=== PATIENT | female | born 1935 | race Caucasian/White ===

== ENCOUNTER 2017-04-21 22:56 | Emergency (ER) | payer MEDICARE ==
[2017-04-21] MEDS ORDERED: Ondansetron HCl/PF 4 MG/2 ML Vial ONE (23:14)
[2017-04-21] MEDS ORDERED: Loperamide HCl 2 MG CAP ONE (23:24)
[2017-04-21 23:31] LABS: Hematocrit 44.2 % (36.0-47.0); Mean Platelet Volume 5.9 fL (7.4-10.4); Red Blood Cell (RBC) Count 5.21 mill/uL (4.20-5.40); White Blood Cell (WBC) Count 15.6 thou/uL (4.8-10.8)
[2017-04-21 23:46] LABS: ALT (SGPT) 21 U/L (8-55); AST (SGOT) 37 U/L (5-34); Alkaline Phosphatase 66 U/L (40-150); Anion Gap 18 mmol/L (10-20); BUN (Urea Nitrogen) 17 mg/dL (9.8-20.1); Bilirubin, Total 0.4 mg/dL (0.2-1.2); Calc. Creatinine Clearance 0 mL/min (70-130); Calcium 9.3 mg/dL (7.8-10.44); Carbon Dioxide 23 mmol/L (23-31); Chloride 105 mmol/L (98-107); Estimated GFR-MDRD 74; Globulin 3.1 g/dL (2.4-3.5); Lipase 42 U/L (8-78); Protein, Total 7.6 g/dL (6.0-8.3)
[2017-04-21 23:50] LABS: Band 7 % (5-11); Neutrophil 80 % (42-75)
[2017-04-22 00:15] LABS: Bilirubin Negative (Negative); Blood, Urine Negative (Negative); Glucose, Urine (Dipstick) Negative (Negative); Ketone, Urine Trace mg/dL (Negative); Nitrite Negative (Negative); Protein, Urine (Dipstick) Negative (Neg-Trace); Urobilinogen 0.2 mg/dL (0.2-1.0)
[2017-04-22 00:21] LABS: Bacteria/HPF Rare-Few HPF (None Seen); Hyaline Casts/LPF 0-3 HYALINE CAST LPF (0-3 Hyaline); RBC/HPF 0-3 HPF (0-3); Squamous Epithelial 0-3 HPF (0-3)
--- NOTE | 2017-05-15 12:05 | EKG ---
Test Reason : ND Blood Pressure : / mmHG Vent. Rate : 088 BPM Atrial Rate : 088 BPM P-R Int : 142 ms QRS Dur : 086 ms QT Int : 332 ms P-R-T Axes : 060 089 -12 degrees QTc Int : 401 ms Normal sinus rhythm Abnormal ECG Confirmed by LAN VERAS ([id number]), editor producer MATT KOENIG ([id number]) on 05/15/2017 12:04:42 PM Referred By: Confirmed By:LAN VERAS
== END 2017-04-22 00:43 | disposition home or self-care (01) ==
LOC: SCSER 22:56
DX: K52.9 Noninfective gastroenteritis and colitis, unspecified (principal); E03.9 Hypothyroidism, unspecified; K21.9 Gastro-esophageal reflux disease without esophagitis; Z79.899 Other long term (current) drug therapy
CPT/HCPCS: 80053; 81003; 81015; 82553; 83690; 84484; 85025; 87086; 93005; 96361; 96374; J2405

== ENCOUNTER 2017-06-25 11:41 | Outpatient (CLI) | payer MEDICARE | END 2017-06-25 11:42 | disposition home or self-care (01) | LOC: BICMAMMO 11:41 | PROVIDERS: ATTEND Internal Medicine | DX: Z12.31 Encounter for screening mammogram for malignant neoplasm of breast (principal) | CPT/HCPCS: 77063; 77067 ==

== ENCOUNTER 2017-08-09 16:34 | Emergency (ER) | payer MEDICARE ==
--- NOTE | 2017-08-09 17:28 | RAD ---
CHEST 2 VIEWS: Date: 08/09/17 HISTORY: Cough and congestion. COMPARISON: Chest radiograph dated 02/02/12. FINDINGS: There is some linear atelectasis in the right lower lobe. Remainder of the lungs are clear. No pneumo thorax. No effusion. No acute osseous abnormality. Mild ectasia of the aorta. IMPRESSION: Right lower lobe opacity, likely atelectasis. Follow-up could be obtained. POS: HOME
[2017-08-09] MEDS ORDERED: Lidocaine 1% w/Epinephrine 1:100K 30 ML VIAL ONE (17:43)
== END 2017-08-09 17:32 | disposition home or self-care (01) ==
LOC: SCSER 16:34
DX: J20.9 Acute bronchitis, unspecified (principal); E03.9 Hypothyroidism, unspecified; K21.9 Gastro-esophageal reflux disease without esophagitis; Z79.899 Other long term (current) drug therapy
CPT/HCPCS: 71046; J2001

== ENCOUNTER 2017-08-15 14:43 | Day surgery (SDC) | payer MEDICARE ==
[2017-08-15] MEDS ORDERED: Benzonatate 100 MG CAP ONE (15:52)
--- NOTE | 2017-08-15 17:15 | RAD ---
CHEST TWO VIEW 08/15/17 HISTORY: Cough and shortness of breath. COMPARISON: Radiograph 08/09/17. FINDINGS: Mild increased opacification in the right lower lobe may reflect pneumonia. No pneumothorax. Mild luz g hyperinflation. The cardiac silhouette and mediastinal contours are similar. IMPRESSION: Mild increase in right lower lobe air space opacity may reflect underlying early infection. Followup recommended. POS: [facility]
[2017-08-15 17:24] LABS: #Basophils 0.1 thou/uL (0.0-0.2); #Lymphocytes 2.1 thou/uL (1.20-3.40); #Monocytes 0.5 thou/uL (0.11-0.59); #Neutrophils 3.5 thou/uL (1.40-6.50); %Basophils 1.2 % (0.0-1.0); %Eosinophils 0.7 % (0.0-10.0); %Lymphocytes 33.9 % (21.0-51.0); %Monocytes 7.7 % (0.0-10.0); %Neutrophils 56.6 % (42.0-75.0); Mean Corpuscular HGB CONC 34.1 g/dL (32.0-36.0); Mean Corpuscular Hemoglobin 26.9 pg (27.0-31.0); Mean Corpuscular Volume 78.8 fl (81.0-99.0); Mean Platelet Volume 5.8 fL (7.4-10.4); Platelet Count 206 thou/uL (130-400); RBC Distribution Width 11.6 % (11.5-14.5); Red Blood Cell (RBC) Count 4.46 mill/uL (4.20-5.40); White Blood Cell (WBC) Count 6.2 thou/uL (4.8-10.8)
[2017-08-15 17:42] LABS: ALT (SGPT) 13 U/L (8-55); AST (SGOT) 18 U/L (5-34); Alkaline Phosphatase 58 U/L (40-150); Anion Gap 15 mmol/L (10-20); BUN (Urea Nitrogen) 9 mg/dL (9.8-20.1); Bilirubin, Total 0.6 mg/dL (0.2-1.2); Calc. Creatinine Clearance 0 mL/min (70-130); Calcium 9.2 mg/dL (7.8-10.44); Carbon Dioxide 23 mmol/L (23-31); Chloride 105 mmol/L (98-107); Estimated GFR-MDRD 90; Globulin 2.4 g/dL (2.4-3.5); Glucose 97 mg/dL (83-110); Potassium 3.8 mmol/L (3.5-5.1); Protein, Total 6.4 g/dL (6.0-8.3); Sodium 139 mmol/L (136-145)
[2017-08-15 17:44] LABS: CKMB 1.4 ng/mL (0-6.6); Troponin I Less than 0.010 ng/mL (< 0.028)
[2017-08-15] MEDS ORDERED: cefTRIAXone\\ROCEPHIN 2 GM VIAL ONE (19:01)
[2017-08-15] MEDS ORDERED: Sodium Chloride 0.9% 100 ML ONE (19:02)
[2017-08-15] MEDS ORDERED: Albuterol Sulfate 2.5 mg/0.5 ml Neb ONE ×2 (19:19→19:20)
[2017-08-15] MEDS ORDERED: Azithromycin 500 MG VIAL ONE (20:10)
== END 2017-08-16 09:54 | disposition home or self-care (01) ==
LOC: SCSER 14:43 → SCSER/OP 19:37
PROVIDERS: ATTEND Emergency Medicine
DX: J18.9 Pneumonia, unspecified organism (principal); M85.80 Other specified disorders of bone density and structure, unspecified site; E03.9 Hypothyroidism, unspecified; K21.9 Gastro-esophageal reflux disease without esophagitis; M19.90 Unspecified osteoarthritis, unspecified site; T78.1XXA Other adverse food reactions, not elsewhere classified, initial encounter; Z90.710 Acquired absence of both cervix and uterus; Z92.3 Personal history of irradiation; Z85.820 Personal history of malignant melanoma of skin
CPT/HCPCS: 36415; 71046; 80053; 82553; 83880; 84484; 85025; 87040; 93005; 94760; J0456; J0696; J7050; J7611

== ENCOUNTER 2020-07-16 21:51 | Inpatient (IN) | payer MEDICARE ==
[2020-07-16] MEDS ORDERED: Dextrose 5% in Water 1,000 ML IV PRN (23:55)
[2020-07-16] MEDS ORDERED: Dextrose 50% Abboject 50 ML SYRINGE SLOW IVP PRN (23:55)
[2020-07-16] MEDS ORDERED: hydrALAZINE 20 MG/ML VIAL SLOW IVP PRN (23:55)
[2020-07-16] MEDS ORDERED: HumaLOG 300 UNITS/3 ML VIAL SC PRN (23:55)
[2020-07-16] MEDS ORDERED: Promethazine HCl 25 MG/ML VIAL IM PRN (23:55)
[2020-07-16] MEDS ORDERED: Morphine 2 MG/ML VIAL SLOW IVP PRN (23:55)
[2020-07-17] MEDS ORDERED: traMADol HCl 50 MG TAB PO PRN (00:05)
[2020-07-17] MEDS: traMADol HCl 50 MG TAB PO SCH ×5 (00:36→23:20)
[2020-07-17] MEDS: Acetaminophen 500 MG TAB PO SCH ×5 (00:36→23:18)
[2020-07-17] MEDS: Lactated Ringer's 1,000 ML IV SCH ×2 (00:37→13:35)
[2020-07-17 00:59] VITALS: BMI 20.7
[2020-07-17 01:29] LABS: Bilirubin Negative (Negative); Blood, Urine Negative (Negative); Clarity Clear (Clear); Glucose, Urine (Dipstick) Normal (Negative); Ketone, Urine Negative (Negative); Leukocyte Negative Leu/uL (Negative); Nitrite Negative (Negative); Protein, Urine (Dipstick) Negative (Neg-Trace); RBC/HPF 0-3 HPF (0-3); Specific Gravity, Urine 1.013 (1.002-1.036); Squamous Epithelial 0-3 HPF (0-3); Urobilinogen Normal mg/dL (Less than 2); WBC/HPF 0-3 HPF (0-3)
[2020-07-17 01:32] LABS: Bacteria/HPF Rare-Few HPF (None Seen)
[2020-07-17 01:33] LABS: Urine Culture Reflex No No
--- NOTE | 2020-07-17 03:26 | HP ---
Trauma activation not applicable. HISTORY OF PRESENT ILLNESS: This is an 84-year-old female who presented to [place] as a transfer from [facility]. Per patient, she was walking in her apartment at her independent living facility when she tripped and fell landing on her right knee and then striking the front of her face. Patient denies any loss of consciousness. Patient was seen and evaluated at [facility] where she was found to have a right patellar fracture and a right incisor dislocation. Dr. Max from Orthopedic Surgery was noticed and asked that the patient be transferred to [facility] in [place] for further evaluation and care. Upon my evaluation this evening, the patient's GCS is 15. She complains of a 5/10 aching pain in her right knee. Otherwise, she vocalized no complaint. Prior to her accident, patient reports being in her normal state of health. PAST MEDICAL HISTORY: ALLERGIES: PATIENT DENIES. HOME MEDICATIONS: Include: 1. Synthroid 2. Pantoprazole. 3. Amitriptyline. The patient is somewhat a poor historian and is unable to provide her full medication list, but reports that her daughter will be at bedside tomorrow morning and will be able to assist at that time. Chronic Medical Illnesses: Significant for hypothyroidism, GERD, depression. Chart review reveals medical history of osteopenia, right eye melanoma. SURGICAL HISTORY: Significant for hysterectomy, lymph node biopsy in 1977, bladder sling in 2002, radiation implant and removal for melanoma in the right eye in 2004. SOCIAL HISTORY: Patient lives alone at [facility]. She denies alcohol, tobacco, or illicit drug use. REVIEW OF SYSTEMS: Remainder of a 10-point review of systems was performed and negative, except as indicated in the HPI. PHYSICAL EXAMINATION: VITAL SIGNS: Temperature 98.2, pulse 82, respirations 20, O2 saturation 98% on room air, blood pressure 152/71. GENERAL: Elderly-appearing female, in no acute distress, resting in bed. HEENT: Head is normocephalic. She does have a band-aid over her lip laceration which was described as 0.5 cm of the right upper lip. There is some bruising and discoloration of the upper lip. Oral mucosa is moist. The right incisor appears to be bloody and mildly posteriorly displaced. This does not appear to cause any malocclusion at this time. NECK: Supple. Trachea is midline. There is no midline tenderness to palpation. CHEST: Atraumatic. Nontender to palpation. Normal work of breathing. Symmetric rise. CARDIOVASCULAR: Regular rate and rhythm. No pedal edema noted. Pulses are 2+ bilaterally. ABDOMEN: Atraumatic, soft, nontender, and nondistended. MUSCULOSKELETAL: Bilateral upper extremities within normal limits per patient. Left lower extremity within normal limits per patient. Right lower extremity is in a knee immobilizer with ecchymosis of the right knee and swelling. She is neurovascularly intact distal to the site of her injury. NEUROLOGIC: GCS is 15. No focal deficit is noted. LABORATORY FINDINGS: WBC 7.8, hemoglobin 12.6, hematocrit 38.2, and platelet count 208. Sodium 139, potassium 3.5, chloride 107, carbon dioxide 25, BUN 15, creatinine 0.70, and glucose 134. AST and ALT within normal limits. Rapid COVID screen was negative. RADIOGRAPHIC FINDINGS: 1. Chest x-ray is negative for any acute cardiopulmonary process. 2. X-ray of the right knee was read by Radiology as patellar fracture of the mid and inferior pole with joint effusion. 3. EKG, normal sinus rhythm, slightly prolonged QTc at 466. There is no evidence of an acute ischemic process. ASSESSMENT: 1. Status post mechanical fall. 2. Right patellar fracture. 3. Right incisor dislocation. 4. Upper lip laceration. 5. Acute traumatic pain. 6. History of hypothyroidism, gastroesophageal reflux disease, and depression. PLAN: Admit to Trauma Services. Patient will be seen and evaluated by Orthopedic Surgery in the morning. She should be n.p.o. after midnight with gentle IV fluids for hydration. Pain should be controlled with p.o. and IV analgesics p.r.n. Postoperative PT and OT. Reconcile the patient's home medications upon arrival of daughter. In regard to clearance for surgery, the patient does deny any history of cardiopulmonary disease. She reports being able to walk on a level surface without difficulty. She also takes stairs regularly and does not experience any chest pain or shortness of breath at this time. Plan of care was discussed with the patient and nurse at bedside and all questions were answered prior to this dictation. Trauma attending has been notified of admission. Job ID: [id number] [facility]
[2020-07-17 05:44] LABS: #Eosinphils 0.1 thou/uL (0.0-0.7); #Lymphocytes 1.8 thou/uL (1.20-3.40); #Monocytes 0.7 thou/uL (0.11-0.59); #Neutrophils 4.8 thou/uL (1.40-6.50); %Basophils 0.3 % (0.0-1.0); %Eosinophils 1.1 % (0.0-10.0); %Lymphocytes 24.2 % (21.0-51.0); %Monocytes 9.8 % (0.0-10.0); %Neutrophils 64.5 % (42.0-75.0); Hemoglobin 12.4 g/dL (12.0-16.0); Mean Corpuscular Hemoglobin 29.5 pg (27.0-31.0); Mean Corpuscular Volume 86.9 fL (78.0-98.0); Mean Platelet Volume 7.3 fL (7.4-10.4); Platelet Count 185 thou/uL (130-400); RBC Distribution Width 12.1 % (11.5-14.5); Red Blood Cell (RBC) Count 4.21 mill/uL (4.20-5.40); White Blood Cell (WBC) Count 7.4 thou/uL (4.8-10.8)
[2020-07-17] MEDS: Ketorolac Tromethamine 30 MG/ML VIAL IVP SCH ×4 (05:44→23:19)
[2020-07-17 05:58] LABS: INR-International Normal Ratio 0.9; PTT 28.9 sec (22.9-36.1); Prothrombin Time 12.6 sec (12.0-14.7)
[2020-07-17 06:04] LABS: Anion Gap 11 mmol/L (10-20); BUN (Urea Nitrogen) 15 mg/dL (9.8-20.1); Calc. Creatinine Clearance 55 mL/min (70-130); Calcium 8.6 mg/dL (7.8-10.44); Carbon Dioxide 27 mmol/L (23-31); Chloride 105 mmol/L (98-107); Glucose 116 mg/dL (83-110); Potassium 3.8 mmol/L (3.5-5.1); Sodium 139 mmol/L (136-145)
[2020-07-17 06:30] LABS: CKMB 2.8 ng/mL (0-6.6)
[2020-07-17 07:51] LABS: Troponin I 0.083 ng/mL (< 0.028)
[2020-07-17] MEDS: Famotidine 20 MG TAB PO SCH ×2 (09:04→20:07)
[2020-07-17] MEDS: Ondansetron PF 4 MG/2 ML Vial IVP PRN ×2 (09:14→16:27)
[2020-07-17] MEDS ORDERED: Ketorolac Tromethamine 30 MG/ML VIAL ONE (09:47)
[2020-07-17] MEDS ORDERED: ePHEDrine 50 MG/ML VIAL ONE (09:47)
[2020-07-17] MEDS ORDERED: Bupivacaine HCl 0.5%/Epinephrine 1:200,000/PF 30 ml Vial ONE (09:47)
[2020-07-17] MEDS ORDERED: PROPOFOL 200 MG/20 ML VIAL ONE (09:47)
[2020-07-17] MEDS ORDERED: Fentanyl 100 MCG/2 ML VIAL SLOW IVP PRN (10:20)
--- NOTE | 2020-07-17 11:10 | CON ---
DATE OF CONSULTATION: 07/17/2020 HISTORY OF PRESENT ILLNESS: Ms. Sapp is an 84-year-old female who was consulted for right knee patella fracture. The patient was unable to mobilize with a knee immobilizer and not to be sent home with some instability. Therefore, she was transferred for on-call OR today for open reduction and internal fixation of the patella fracture. The patient is currently nauseated. The patient is was previously in a normal state of health. She ambulates fully at her [facility]. PAST MEDICAL HISTORY: Includes hypothyroidism; reflux; depression; osteopenia; melanoma; heart failure, followed by Dr. Angel. PAST SURGICAL HISTORY: Hysterectomy, lymph node biopsy, bladder sling, radiation for melanoma of her eye. ALLERGIES: NONE. HOME MEDICATIONS: Please see admission list for full details. SOCIAL HISTORY: The patient lives in . She denies tobacco, alcohol, or drug use. Her daughter is at the bedside. REVIEW OF SYSTEMS: Negative except for a 10-point review of systems above. PHYSICAL EXAMINATION: VITAL SIGNS: Currently are temperature 98, pulse 74, respirations 14, oxygen saturation 97%, blood pressure 156/81. GENERAL: Alert and oriented female, is in no acute distress. EXTREMITIES: Right lower extremity; the patient has swelling anteriorly, unable to extend her knee. She had palpable pulses. No open wounds. The patient has no pain with external rotation. Stable knee exam. Knee immobilizer is in place. The patient is unable to ambulate. IMAGING STUDIES: Radiographs show a transverse fracture of the patella. IMPRESSION: 1. Right patella fracture. 2. Ground-level fall. 3. An 84-year-old with history of hypertension, hypothyroidism, and lives in independent living. ASSESSMENT AND PLAN: The patient will need open reduction and internal fixation of her patella. I discussed with her and her daughter the risks and benefits of surgery include pain, scar, bleeding, infection, damage to vital structures, decreased range of motion and strength, continued pain despite surgical intervention, need for hardware removal, loss of life or limb, and potential risk of deep venous thrombosis. She understands potential risks and benefits. The patient will be taken to the operative suite today for open reduction and internal fixation of her right patella fracture. Job ID: [id number] [facility]
[2020-07-17] MEDS ORDERED: Fentanyl 100 MCG/2 ML VIAL ONE (11:48)
--- NOTE | 2020-07-17 12:37 | PRG ---
DATE OF SERVICE: 07/17/2020 SUBJECTIVE: The patient was seen during morning rounds, awake, alert, moderate distress due to pain. The patient had just received some morphine, which made her nauseated. The patient has been n.p.o. since midnight. The patient had no overnight events. The patient is hospital day #1, status post ground level fall, in which she sustained a right patella fracture, pending orthopedic repair. OBJECTIVE: VITAL SIGNS: Temperature 98.7, pulse 71, respirations 16, SpO2 of 96% on room air, blood pressure 125/73. GENERAL: Well-appearing elderly female, awake, alert, in moderate distress due to pain. RESPIRATORY: Good inspiratory and expiratory effort, respirations are even and nonlabored. CARDIAC: Regular rate and regular rhythm. ABDOMEN: Soft, nontender. MUSCULOSKELETAL: Neurovascularly intact x4. NEUROLOGIC: GCS 15. No focal deficits. SKIN: Warm, dry, normal color. LABORATORY DATA: WBC 7.4, RBC 4.21, hemoglobin 12.4, hematocrit 36.6, platelets 185. Sodium 139, potassium 3.8, chloride 105, carbon dioxide 27, BUN 15, creatinine 0.67, estimated GFR 84, glucose 116, calcium 8.6. Troponin decreased to 0.083. DIAGNOSTICS: There are no new diagnostics to review today. ASSESSMENT: 1. Status post mechanical fall. 2. Right patellar fracture, pending orthopedic repair. 3. Right incisor dislocation. 4. Upper lip laceration. 5. Acute traumatic pain secondary to above injuries. 6. History of hypothyroidism, gastroesophageal reflux disease, and depression. PLAN: Continue supportive care and pain regimen. Continue n.p.o. status. Orthopedic Surgery plans to take the patient to the OR for repair of her patella fracture today. Continue maintenance IV fluids. PT and OT to evaluate and treat postop. Mechanical VTE prophylaxis at this time. Once the patient's hemoglobin is stable postop, she will be placed on chemical VTE prophylaxis. The patient was examined by Dr. Arias during morning rounds. Plan was discussed with the patient who agrees. Job ID: [id number]
--- NOTE | 2020-07-17 13:46 | RAD ---
Right knee:2 fluoroscopic views from the OR are presented. INDICATIONS:Intraoperative imaging during internal fixation right patella. COMPARISON:None FINDINGS: Films demonstrate 2 screws transfixing the patella.
[2020-07-17] MEDS ORDERED: CEFAZOLIN 2 GM in Premix Bag 1 BAG IVPB SCH (15:30)
[2020-07-17] MEDS ORDERED: Scopolamine 1.5 mg/72 hour Patch TD SCH (17:00)
--- NOTE | 2020-07-17 20:01 | OP ---
DATE OF PROCEDURE: 07/17/2020 PREOPERATIVE DIAGNOSIS: Right patella fracture. POSTOPERATIVE DIAGNOSIS: Right patella fracture. PROCEDURE PERFORMED: Open reduction and internal fixation right patella fracture. CALL CENTER NURSE: Ryland Qiu PA-C ANESTHESIOLOGIST: Darryl Baptiste MD ANESTHESIA: The patient received an LMA with a single-shot adductor canal. ESTIMATED BLOOD LOSS: Less than 100 mL. TOURNIQUET TIME: 50 minutes at 250 mmHg. ANTIBIOTICS: Ancef 2 g. IMPLANTS: Two 36 mm 4.0 screws with #2 FiberWire and #5 Ethibond. COMPLICATIONS: None. HISTORY OF PRESENT ILLNESS: Ms. Sapp is an 84-year-old female, status post ground-level fall, sustained a patella fracture. I discussed with the family risks and benefits of right patella open reduction and internal fixation to include pain, scar, bleeding, infection, damage to vital structures, decreased range of motion and strength, continued pain despite surgical intervention, need for further surgeries, and loss of life or limb. The patient understood the risks and benefits of the procedure, and elected to proceed. DESCRIPTION OF PROCEDURE: Time-out was performed designating the patient's right lower extremity as the operative site based on site, consent, and marking. After time-out, the patient's right upper extremity was prepped and draped in sterile fashion. Tourniquet was brought up and left for 50 minutes. In anterior midline approach, incision was made down to the patellar tendon. The fracture was curetted out and cleaning for focus. A point reduction forceps was used to clamp across the fracture to get [id number] contact. We placed our K-wires, it passes medially and laterally to get it in position on AP as well as on the lateral view. Being happy with this, we over drilled our drill and passed our 4.0 screws. I ensured they worn out of bone on AP and lateral radiographs. I then passed a suture Lasso through the bone to pull #2 FiberWire, which we tied as a tension band on top, cut the sutures long, used #2 Vicryl to close the transverse rent in the retinaculum superiorly. We then ran a #5 Ethibond, cerclaging the entirety to close up our holes that we had made within the quad and the patella to find the screw and which past the sutures, those passed around the entirety of the bone, tied into place, cut the knot long, washed, closed with 2-0, and skin barbara. The patient will be in a knee immobilizer. She will education instructor the knee immobilizer x6 weeks to allow the patella to heal. The patient will begin weightbearing as tolerated with preoperative antibiotics. My mobile unit assistant helped me with transfer, midline incision, cleaning of the curette, fracture site ORIF repair, washout, closure, and transfer back to bed. Job ID: [id number]
[2020-07-17] MEDS: Amitriptyline HCl 10 MG TAB PO SCH (20:07)
[2020-07-18] MEDS: Ondansetron ODT 4 MG TAB PO PRN ×2 (00:05→09:31)
[2020-07-18] MEDS: Acetaminophen 500 MG TAB PO SCH ×4 (05:23→23:12)
[2020-07-18] MEDS: Lactated Ringer's 1,000 ML IV SCH (05:23)
[2020-07-18] MEDS: Ketorolac Tromethamine 30 MG/ML VIAL IVP SCH (05:23)
[2020-07-18] MEDS: traMADol HCl 50 MG TAB PO SCH ×4 (05:23→23:13)
[2020-07-18 06:24] LABS: Hemoglobin 10.2 g/dL (12.0-16.0); Mean Corpuscular HGB CONC 32.5 g/dL (32.0-36.0); Mean Corpuscular Volume 89.4 fL (78.0-98.0); Mean Platelet Volume 7.3 fL (7.4-10.4); Platelet Count 176 thou/uL (130-400); RBC Distribution Width 12.2 % (11.5-14.5); White Blood Cell (WBC) Count 6.3 thou/uL (4.8-10.8)
[2020-07-18 06:40] LABS: Anion Gap 12 mmol/L (10-20); BUN (Urea Nitrogen) 10 mg/dL (9.8-20.1); Calc. Creatinine Clearance 58 mL/min (70-130); Calcium 8.1 mg/dL (7.8-10.44); Carbon Dioxide 24 mmol/L (23-31); Chloride 103 mmol/L (98-107); Glucose 97 mg/dL (83-110); Magnesium 1.8 mg/dL (1.6-2.6); Phosphorus 3.9 mg/dL (2.3-4.7); Potassium 4.2 mmol/L (3.5-5.1); Sodium 135 mmol/L (136-145)
[2020-07-18] MEDS ORDERED: Magnesium 2 GM/50 ML 2 GM in Premix Bag 1 BAG IVPB SCH (08:45)
[2020-07-18] MEDS ORDERED: Senokot 8.6 MG TAB PO SCH ×2 (09:00→14:15)
[2020-07-18] MEDS: Famotidine 20 MG TAB PO SCH ×2 (09:31→19:41)
[2020-07-18] MEDS: Polyethylene Glycol 3350 17 GM Packet PO SCH (09:32)
--- NOTE | 2020-07-18 14:40 | PRG ---
DATE OF SERVICE: 07/18/2020 SUBJECTIVE: The patient was seen during morning rounds, awake, alert, in no distress. The patient is postop day 1, status post open reduction and internal fixation of right patellar fracture. The patient had no overnight events. The patient continues to have some nausea, but no vomiting. The patient has a scopolamine patch in place. The patient had no overnight events. The patient's pain is controlled at this time. The patient is tolerating a diet. OBJECTIVE: VITAL SIGNS: Temperature 97.7, pulse 70, respirations 16, SpO2 of 98% on room air, blood pressure 124/60. GENERAL: Well-appearing elderly female, awake, alert, in no distress. HEENT: Unremarkable. RESPIRATORY: Good inspiratory and expiratory effort. Breath sounds are clear. CARDIAC: Regular rate and regular rhythm. EXTREMITIES: Neurovascularly intact x4. NEUROLOGIC: No focal deficits. SKIN: Warm, dry, and normal color. LABORATORY DATA: WBC 6.3, RBC 3.50, hemoglobin 10.2, hematocrit 31.3, platelets 176. Sodium 135, potassium 4.2, chloride 103, BUN 10, creatinine 0.64, estimated GFR 88, glucose 97, calcium 8.1, phosphorus 3.9, magnesium 1.8. DIAGNOSTICS: There are no new diagnostics to review today. ASSESSMENT: 1. Status post mechanical fall. 2. Right patellar fracture, postop day #1 open reduction and internal fixation. 3. Right incisor dislocation. 4. Lip laceration. 5. History of hypothyroidism, gastroesophageal reflux disease, and depression. PLAN: Continue supportive care and pain regimen. Regular diet as tolerated. PT and OT. A post-acute screen has been placed and family is looking at [facility]. The patient was examined by Dr. Arias during morning rounds. The plan was discussed with the patient and family who agrees. Job ID: [id number]
[2020-07-18] MEDS: Amitriptyline HCl 10 MG TAB PO SCH (19:41)
[2020-07-18] MEDS ORDERED: Atorvastatin Calcium 10 MG TAB PO SCH (21:00)
[2020-07-19] MEDS: traMADol HCl 50 MG TAB PO SCH ×2 (05:21→11:53)
[2020-07-19] MEDS: Acetaminophen 500 MG TAB PO SCH ×2 (05:24→11:54)
[2020-07-19] MEDS ORDERED: Levothyroxine Sodium 88 MCG TAB PO SCH (06:00)
[2020-07-19 06:20] LABS: Mean Corpuscular HGB CONC 31.4 g/dL (32.0-36.0); Mean Platelet Volume 7.2 fL (7.4-10.4); Platelet Count 173 thou/uL (130-400); RBC Distribution Width 12.2 % (11.5-14.5); Red Blood Cell (RBC) Count 3.57 mill/uL (4.20-5.40)
[2020-07-19] MEDS ORDERED: Rivastigmine 4.6mg/24 Hour PATCH TD SCH (09:00)
[2020-07-19] MEDS ORDERED: Senokot 8.6 MG TAB PO SCH (09:00)
[2020-07-19] MEDS ORDERED: Enoxaparin Sodium 40 MG/0.4 ML SYRINGE SC SCH (09:00)
[2020-07-19] MEDS: Famotidine 20 MG TAB PO SCH (09:27)
[2020-07-19] MEDS: Polyethylene Glycol 3350 17 GM Packet PO SCH (09:28)
--- NOTE | 2020-07-19 11:11 | CON ---
DATE OF CONSULTATION: 07/17/2020 HISTORY OF PRESENT ILLNESS: This is an 84-year-old female, who was admitted for a right knee patella fracture at the time of her fall. She luxated maxillary incisor which was displacing and causing her discomfort, for which, Oral Surgery was consulted. PAST MEDICAL HISTORY: 1. Hypothyroidism. 2. Reflux. 3. Depression. 4. Osteopenia. 5. Melanoma. 6. Heart failure. PAST SURGICAL HISTORY: 1. Hysterectomy. 2. Bladder sling. 3. Radiation for melanoma of her eye. ALLERGIES: NKDA. HOME MEDICATIONS: See H and P for details. SOCIAL HISTORY: Negative for tobacco, alcohol, or drug use. REVIEW OF SYMPTOMS: Negative. PHYSICAL EXAMINATION: VITAL SIGNS: Stable, afebrile. GENERAL: Awake, alert, oriented, sitting at bedside, eating lunch. No acute distress. HEENT: Facial examination reveals normocephalic, atraumatic. No extraoral signs of trauma. Intraoral exam reveals a normal range of motion of the mandible. Stable repeatable occlusion with apertognathia. There is a palatally luxated tooth #8 with a slight class one mobility. No malocclusion while there is no facial imaging to assess. ASSESSMENT AND PLAN: This is an 84-year-old female, status post fall with palatally luxated maxillary right central incisor. The tooth was digitally repositioned at bedside. The patient has a nightguard that she previous has worn and recommended that the patient's daughter retrieve the nightguard from home and have the patient wear it at any time that she is not eating to act as a splint to stabilize this mobile tooth. After discharge from the hospital, she can follow up with her general dentist to assess the need for root canal therapy and stability of this tooth. Job ID: [id number]
[2020-07-19 12:49] VITALS: BP 129/64; TEMP 98.1
--- NOTE | 2020-07-19 16:00 | DIS ---
DATE OF ADMISSION: 07/16/2020 DATE OF DISCHARGE: 07/19/2020 ATTENDING: Dr. Arias CONSULTS: 1. Orthopedic Surgery, Dr. Max. 2. Oral surgery Dr. Trimble. PROCEDURES: Open reduction and internal fixation right patella fracture on 07/17/2020. PRIMARY DIAGNOSES: 1. Right patellar fracture, ground level fall. 2. Right incisor dislocation. 3. Upper lip laceration. SECONDARY DIAGNOSES: 1. Hypothyroidism. 2. Gastroesophageal reflux disease. 3. Depression. 4. Osteopenia. 5. Right eye melanoma. DISCHARGE MEDICATIONS: 1. Lovenox 40 mg subcu daily for 14 days, VTE prophylaxis. 2. Acetaminophen 1000 mg p.o. q.6 hours. 3. Amitriptyline 20 mg p.o. at bedtime. 4. Atorvastatin 10 mg p.o. at bedtime. 5. Lactulose 30 g p.o. daily until patient has a bowel movement. 6. Levothyroxine 88 mcg daily. 7. Metoprolol 25 mg extended release one tablet p.o. daily. 8. Zofran ODT 4 mg q.6 hours p.r.n. nausea, vomiting. 9. Protonix 40 mg p.o. daily. 10. MiraLAX as needed for constipation. 11. Rivastigmine patch transdermal 24 daily. 12. Entresto 24 mg/26 mg p.o. b.i.d. 13. Discontinue scopolamine patch on 07/20/2020. 14. Senokot as needed for constipation. 15. Tramadol 50 mg p.o. q.6 hours p.r.n. pain, #30, no refills. HISTORY OF PRESENT ILLNESS AND HOSPITAL COURSE: This is an 84-year-old female, who presented to the emergency room after she tripped and fell at her independent living facility. The patient reports landing on her right knee and then striking the front of her face. The patient denied any loss of consciousness. The patient was initially evaluated at [facility] and then transferred to [facility]. The patient denied any weakness, dizziness, chest pain, or shortness of breath prior to the event. The patient's Glascow Coma Scale was 15. The patient was evaluated by Orthopedic surgery and Oral Maxillofacial surgery. The patient's pain was well controlled pre and postop. The patient did have some nausea postop in which a scopolamine patch was placed for 3 days with improvement. The patient was able to ambulate 20 feet with physical therapy. The patient was started on Lovenox for VTE prophylaxis and is recommended to continue for 2 weeks as she has not been very mobile. The patient was examined by Dr. Arias on the day of discharge. Her exam was unremarkable including cardiopulmonary and GI exam. The patient was deemed stable for discharge to [facility] for continued physical and occupational therapy. The patient voices no complaints or concerns. Her vital signs were stable. The patient's hemoglobin and hematocrit were also stable on the day of discharge. DISPOSITION: Stable. DISCHARGE INSTRUCTIONS: 1. Location: [facility]. 2. Diet: Regular diet as tolerated. 3. Activity: Orthopedic limitations, weightbearing as tolerated. The patient is to continue using her incentive spirometer every hour while awake as long as she is not mobile. The patient has also been instructed by Oral surgery to wear her unit aide when she is not eating to act as a splint to stabilize the tooth. The patient is to follow up with her General dentist to assess the need of a root canal. FOLLOWUP: 1. General dentist once out of rehab. 2. Follow up with Dr. Max in 14 days. 3. No need to follow up with Trauma Services, call for any questions. 4. Follow up with primary care physician and chicken cleaner in 14 days. The [place] prescription monitoring program was accessed and appropriate. 50% of the 30 minutes were spent educating patient on medications and followup appointments. Job ID: [id number] [facility]
== END 2020-07-19 14:57 | DRG 517 ==
LOC: SURG A 21:51
PROVIDERS: ADMIT Surgery; ATTEND Surgery
PROC: 0QSD04Z Reposition Right Patella with Internal Fixation Device, Open Approach (ICD-10-PCS; principal; 2020-07-17)
DX: S82.031A Displaced transverse fracture of right patella, initial encounter for closed fracture (principal); W01.10XA Fall on same level from slipping, tripping and stumbling with subsequent striking against unspecified object, initial encounter; E03.9 Hypothyroidism, unspecified; S03.2XXA Dislocation of tooth, initial encounter; S01.511A Laceration without foreign body of lip, initial encounter; C69.91 Malignant neoplasm of unspecified site of right eye; M85.80 Other specified disorders of bone density and structure, unspecified site; K21.9 Gastro-esophageal reflux disease without esophagitis; F32.9 Major depressive disorder, single episode, unspecified; Y92.039 Unspecified place in apartment as the place of occurrence of the external cause; Z90.710 Acquired absence of both cervix and uterus
CPT/HCPCS: 36415; 36416; 71045; 76000; 80048; 80053; 81001; 82553; 83735; 84100; 84439; 84443; 84484; 84550; 85025; 85027; 85610; 85730; 86140; 90471; 90715; 93005; 93010; C1713; C1769; J0690; J1650; J1885; J2270; J2405; J2704; J3010; J3475; J3490; Q0162; U0002

== ENCOUNTER 2020-08-06 17:45 | Inpatient (IN) | payer MEDICARE, OTHER ==
[2020-08-08 13:18] VITALS: BMI 18.3
[2020-08-09] MEDS ORDERED: Fentanyl 100 MCG/2 ML VIAL ONE ×4 (11:54→15:23)
[2020-08-09] MEDS ORDERED: Bupivacaine 0.25% HCL 30 ML VIAL ONE (12:00)
[2020-08-09] MEDS ORDERED: EPINEPHrine 1 MG/ML AMP ONE (12:00)
[2020-08-09] MEDS ORDERED: Ondansetron PF 4 MG/2 ML Vial ONE (12:24)
[2020-08-09] MEDS ORDERED: PROPOFOL 200 MG/20 ML VIAL ONE (12:24)
[2020-08-09] MEDS ORDERED: Lidocaine 1% PF 5 ML VIAL ONE (12:24)
[2020-08-09] MEDS ORDERED: Ketorolac Tromethamine 30 MG/ML VIAL ONE (12:24)
[2020-08-09] MEDS ORDERED: Glycopyrrolate 0.2 MG/ML 5 ML SYRINGE ONE (12:24)
[2020-08-09] MEDS ORDERED: Promethazine HCl 25 MG/ML VIAL IM PRN ×2 (14:07→14:28)
[2020-08-09] MEDS ORDERED: Ondansetron HCl/PF 4 MG/2 ML Vial IVP PRN (14:07)
[2020-08-09] MEDS ORDERED: Promethazine HCl 25 MG/ML VIAL SLOW IVP PRN (14:07)
[2020-08-09] MEDS ORDERED: Bisacodyl 10 MG SUPP PR PRN (14:28)
[2020-08-09] MEDS ORDERED: Fentanyl 100 MCG/2 ML VIAL SLOW IVP PRN (14:28)
[2020-08-09] MEDS ORDERED: traMADol HCl 50 MG TAB PO PRN (14:28)
[2020-08-09] MEDS ORDERED: Acetaminophen 325 MG TAB PO PRN (14:28)
[2020-08-09] MEDS ORDERED: Communication Order-Pharmacy FS SCH (14:28)
[2020-08-09] MEDS ORDERED: Ondansetron PF 4 MG/2 ML Vial SLOW IVP PRN (14:28)
[2020-08-09] MEDS ORDERED: Milk Of Magnesia 30 ML UDCUP PO PRN (14:28)
[2020-08-09] MEDS: Aspirin 81 mg Enteric Coated Tablet PO SCH (20:01)
[2020-08-09] MEDS: Amitriptyline HCl 10 MG TAB PO SCH (20:01)
[2020-08-09] MEDS: traMADol HCl 50 MG TAB PO PRN (20:02)
[2020-08-09] MEDS: Sodium Chloride 0.9% 1,000 ML IV SCH (21:06)
[2020-08-09] MEDS: Sodium Chloride 0.9% 100 ML IV SCH ×2 (21:34→21:35)
[2020-08-10] MEDS: Levothyroxine Sodium 88 MCG TAB PO SCH (06:14)
[2020-08-10] MEDS: Sodium Chloride 0.9% 1,000 ML IV SCH ×2 (06:37→18:28)
[2020-08-10] MEDS: Aspirin 81 mg Enteric Coated Tablet PO SCH ×2 (09:22→20:30)
[2020-08-10] MEDS: Cholecalciferol 1,000 UNITS (25 MCG) TAB PO SCH (09:22)
[2020-08-10] MEDS: traMADol HCl 50 MG TAB PO PRN (09:22)
[2020-08-10] MEDS: Sodium Chloride 0.9% 100 ML IV SCH ×2 (14:56→14:57)
[2020-08-10] MEDS: Ibuprofen 600 MG TAB PO SCH ×2 (15:11→20:30)
[2020-08-10] MEDS: Acetaminophen 500 MG TAB PO SCH ×2 (18:24→23:39)
[2020-08-10] MEDS: Amitriptyline HCl 10 MG TAB PO SCH (20:30)
[2020-08-10] MEDS ORDERED: Simethicone Chewable 80 MG TAB PO PRN (23:35)
[2020-08-10] MEDS: Calcium Carbonate 500 MG ChewTAB PO PRN (23:39)
[2020-08-11] MEDS: Sodium Chloride 0.9% 1,000 ML IV SCH ×2 (02:41→14:39)
[2020-08-11] MEDS: traMADol HCl 50 MG TAB PO PRN ×2 (03:57→10:08)
[2020-08-11] MEDS: Ibuprofen 600 MG TAB PO SCH ×3 (03:58→16:01)
[2020-08-11] MEDS: Acetaminophen 500 MG TAB PO SCH ×3 (06:06→18:42)
[2020-08-11] MEDS: Levothyroxine Sodium 88 MCG TAB PO SCH (06:07)
[2020-08-11] MEDS: Cholecalciferol 1,000 UNITS (25 MCG) TAB PO SCH (08:46)
[2020-08-11] MEDS: Aspirin 81 mg Enteric Coated Tablet PO SCH (08:46)
[2020-08-11 15:44] VITALS: BP 130/71; TEMP 98.4
[2020-08-11] MEDS: Calcium Carbonate 500 MG ChewTAB PO PRN (18:41)
== END 2020-08-11 19:03 | disposition home or self-care (01) | DRG 496 ==
LOC: SURG A 08-09 09:40 → EDSTATUS 08-09 17:45 → SJJU 08-09 17:53
PROVIDERS: ADMIT Orthopaedic Surgery; ATTEND Orthopaedic Surgery
PROC: 0QPD04Z Removal of Internal Fixation Device from Right Patella, Open Approach (ICD-10-PCS; principal; 2020-08-09)
PROC: 0QSD04Z Reposition Right Patella with Internal Fixation Device, Open Approach (ICD-10-PCS; 2020-08-09)
DX: T84.116A Breakdown (mechanical) of internal fixation device of bone of right lower leg, initial encounter (principal); S82.001A Unspecified fracture of right patella, initial encounter for closed fracture; Y84.8 Other medical procedures as the cause of abnormal reaction of the patient, or of later complication, without mention of misadventure at the time of the procedure; Z20.822 Contact with and (suspected) exposure to COVID-19; M19.90 Unspecified osteoarthritis, unspecified site; E03.9 Hypothyroidism, unspecified; K21.9 Gastro-esophageal reflux disease without esophagitis; G31.84 Mild cognitive impairment of uncertain or unknown etiology; K58.9 Irritable bowel syndrome, unspecified; M81.0 Age-related osteoporosis without current pathological fracture; Z91.018 Allergy to other foods; Z90.710 Acquired absence of both cervix and uterus; I25.2 Old myocardial infarction
CPT/HCPCS: 76000; 87635; C1713; J0171; J0690; J1885; J2405; J2704; J3010; S0020; U0003; U0005

== ENCOUNTER 2020-08-06 18:57 | Outpatient (CLI) | payer MEDICARE, OTHER ==
[2020-08-07 16:47] LABS: SARS-CoV-2 PCR by NAA Not Detected (NotDetected)
== END 2020-08-06 18:58 | disposition home or self-care (01) ==
LOC: LABBT 18:57
PROVIDERS: ATTEND Orthopaedic Surgery
DX: Z01.812 Encounter for preprocedural laboratory examination (principal); Z96.9 Presence of functional implant, unspecified; Z98.890 Other specified postprocedural states; Z20.822 Contact with and (suspected) exposure to COVID-19
CPT/HCPCS: U0003; U0005; 87635

== ENCOUNTER 2020-11-04 19:00 | Outpatient (CLI) | payer MEDICARE, OTHER | END 2020-11-04 19:01 | disposition home or self-care (01) | LOC: SLEEPLAB 19:00 | PROVIDERS: ATTEND Internal Medicine | DX: G47.33 Obstructive sleep apnea (adult) (pediatric) (principal); G31.84 Mild cognitive impairment of uncertain or unknown etiology; R09.89 Other specified symptoms and signs involving the circulatory and respiratory systems; R35.1 Nocturia; R06.83 Snoring; I21.9 Acute myocardial infarction, unspecified; I25.10 Atherosclerotic heart disease of native coronary artery without angina pectoris; G47.10 Hypersomnia, unspecified; G47.00 Insomnia, unspecified | CPT/HCPCS: 95811 ==